=== PATIENT | male | born 1945 | race Caucasian/White ===

== ENCOUNTER 2017-08-06 04:58 | Emergency (ER) | payer OTHER ==
[~2017-08-06] VITALS: Ht 182.9 cm; Wt 72.7 kg
[~2017-08-06 04:58] MED LIST: AMLO2.5T PO; ARIC5TAB PO; CLON1TAB PO; DICY20TA10 PO; PRAV10 PO; [UNRECOGNIZED DRUG - CODE] PO
[2017-08-06 05:03] VITALS: BP 118/58; PULSE 84; TEMP 98.2; O2SAT 94
[2017-08-06] MEDS ORDERED: SODIUM CHLOR 0.9% 1000 ML INJ 1,000 ML IV SCH (05:15)
[2017-08-06] MEDS ORDERED: DONE10TA7 PO (05:19)
[2017-08-06] MEDS ORDERED: FLUO20CA12 PO (05:19)
[2017-08-06] MEDS ORDERED: AMLO5TAB2 PO (05:19)
[2017-08-06] MEDS ORDERED: LOPE2CAP PO (05:19)
[2017-08-06] MEDS ORDERED: [UNRECOGNIZED DRUG - CODE] (05:19)
[2017-08-06] MEDS ORDERED: DICL1CAP4 PO (05:19)
[2017-08-06] MEDS ORDERED: OLAN10TA PO (05:19)
[2017-08-06] MEDS ORDERED: CLON0.5T PO (05:19)
[2017-08-06] MEDS ORDERED: DICY10CA12 PO (05:19)
[2017-08-06] MEDS ORDERED: PRAV20TA2 PO (05:19)
[2017-08-06] MEDS ORDERED: CENTCHW4 CHEW (05:19)
--- NOTE | 2017-08-06 05:19 | PD ---
HPI Chief Complaint: General Weakness Time Seen by Provider: 05:03 Travel History International Travel<30 days: No Contact w/Intl Traveler<30days: No Traveled to known affect area: No History of Present Illness HPI 72-year-old male complains of lower extremity weakness, numbness and a fall. Patient states that he start having numbness and weakness lower extremity the past 4 days. Patient states that he tried to get up this morning and on the way to the bathroom and he fell. Patient denies loss of consciousness. Patient denies any headache or neck pain. Patient denies any chest pain or shortness of breath. Patient denies abdominal pain. Patient denies any nausea vomiting or diarrhea. Patient denies any fever chills. Patient denies any dysuria or frequency. Patient states that he did not injure himself during the fall. Patient states that he has diarrhea and foul smelling stool and passing gas excessively for the past 2 weeks. Patient has been seen by personal physician and put on Imodium and Lomotil without much success with diarrhea. Patient denies any blood or mucus in the stool. PFSH Past Medical History Cancer: Yes Cardiovascular Problems: Yes (HIGH BP) High Cholesterol: Yes Chemotherapy: Yes Diminished Hearing: No Diverticulitis: Yes Hypertension: Yes Neurologic: Yes (ALLA BODY DEMENTIA) Parkinson's Disease: Yes Immunizations Current: Yes Radiation Therapy: Yes Past Surgical History Surgical History: No Previous Surgery Social History Alcohol Use: Yes (1 BEER QWEEK) Tobacco Use: No Substance Use: No Allergies-Medications (Allergen,Severity, Reaction): Coded Allergies: No Known Allergies (Verified , 10/11/15) Reported Meds & Prescriptions Reported Meds & Active Scripts Active Reported Centrum (Multiple Vitamins W/ Minerals) 1 Chew 1 Tab CHEW DAILY Zorvolex (Diclofenac) 35 Mg Cap 75 Mg PO TID Loperamide (Loperamide HCl) 2 Mg Cap 2 Mg PO DIRECTED PRN One capsule after each loose stool. Not to exceed 8 capsules per day. l-Glutamine (Glutamine) 500 Mg Capsule Fluoxetine (Fluoxetine HCl) 20 Mg Capsule 20 Mg PO DAILY Olanzapine 10 Mg Tab 10 Mg PO HS Amlodipine (Amlodipine Besylate) 5 Mg Tab 5 Mg PO DAILY Pravastatin 20 Mg Tab 20 Mg PO DAILY Donepezil 10 Mg Tab 10 Mg PO HS Dicyclomine (Dicyclomine HCl) 10 Mg Cap 10 Mg PO DAILY Clonazepam 0.5 Mg Tab 0.5 Mg PO HS Anti-Diarrheal (Loperamide Hcl) 1 Mg/5 Ml Liq 2 Mg PO DAILY Dicyclomine 20 mg (Dicyclomine HCl) 20 Mg Tab 20 Mg PO DAILY Clonazepam 1 Mg Tab 0.5 Mg PO DAILY Pravastatin Sodium (Pravastatin Sod) 10 Mg Tab 10 Mg PO HS Aricept (Donepezil HCl) 5 Mg Tab 10 Mg PO DAILY Amlodipine Besylate 2.5 mg (Amlodipine Besylate) 2.5 Mg Tab 2.5 Mg PO DAILY Review of Systems General / Constitutional: No: Fever Eyes: No: Visual changes HENT: No: Headaches Cardiovascular: No: Chest Pain or Discomfort Respiratory: No: Shortness of Breath Gastrointestinal: No: Abdominal Pain Genitourinary: No: Dysuria Musculoskeletal: No: Pain Skin: No Rash Neurologic: No: Weakness Psychiatric: No: Depression Endocrine: No: Polydipsia Hematologic/Lymphatic: No: Easy Bruising Physical Exam Narrative GENERAL: Well-nourished, well-developed patient. SKIN: Focused skin assessment warm/dry. HEAD: Normocephalic. EYES: No scleral icterus. No injection or drainage. NECK: Supple, trachea midline. No JVD or lymphadenopathy. CARDIOVASCULAR: Regular rate and rhythm without murmurs, gallops, or rubs. RESPIRATORY: Breath sounds equal bilaterally. No accessory muscle use. GASTROINTESTINAL: Abdomen soft, non-tender, nondistended. MUSCULOSKELETAL: No cyanosis, or edema. BACK: Nontender without obvious deformity. No CVA tenderness. Neurologic exam: Patient's awake and alert oriented 3. Patient moves all extremities well. No obvious focal neurological deficit. Data Data Last Documented VS Vital Signs Date Time Temp Pulse Resp B/P (MAP) Pulse Ox O2 Delivery O2 Flow Rate FiO2 08/06/17 05:03 98.2 84 118/58 (78) 94 Orders Orders Electrocardiogram (08/06/17 05:10) Complete Blood Count With Diff (08/06/17 05:10) Comprehensive Metabolic Panel (08/06/17 05:10) Prothrombin Time / Inr (Pt) (08/06/17 05:10) Act Partial Throm Time (Ptt) (08/06/17 05:10) Urinalysis - C+S If Indicated (08/06/17 05:10) Thyroid Stimulating Hormone (08/06/17 05:10) Chest, Single Ap (08/06/17 05:10) Iv Access Insert/Monitor (08/06/17 05:10) Ecg Monitoring (08/06/17 05:10) Oximetry (08/06/17 05:10) Sodium Chlor 0.9% 1000 Ml Inj (Ns 1000 M (08/06/17 05:15) Ct Brain W/O Iv Contrast(Rout) (08/06/17 05:16) Labs Laboratory Tests Test 08/06/17 05:30 White Blood Count 10.3 TH/MM3 Red Blood Count 3.42 MIL/MM3 Hemoglobin 9.6 GM/DL Hematocrit 28.9 % Mean Corpuscular Volume 84.5 FL Mean Corpuscular Hemoglobin 28.0 PG Mean Corpuscular Hemoglobin Concent 33.2 % Red Cell Distribution Width 15.2 % Platelet Count 594 TH/MM3 Mean Platelet Volume 8.3 FL Neutrophils (%) (Auto) 74.0 % Lymphocytes (%) (Auto) 6.4 % Monocytes (%) (Auto) 18.0 % Eosinophils (%) (Auto) 1.3 % Basophils (%) (Auto) 0.3 % Neutrophils # (Auto) 7.6 TH/MM3 Lymphocytes # (Auto) 0.7 TH/MM3 Monocytes # (Auto) 1.9 TH/MM3 Eosinophils # (Auto) 0.1 TH/MM3 Basophils # (Auto) 0.0 TH/MM3 CBC Comment DIFF FINAL Differential Comment Prothrombin Time 14.0 SEC Prothromb Time International Ratio 1.3 RATIO Activated Partial Thromboplast Time 33.4 SEC Blood Urea Nitrogen 13 MG/DL Creatinine 0.98 MG/DL Random Glucose 125 MG/DL Total Protein 6.6 GM/DL Albumin 1.8 GM/DL Calcium Level 8.0 MG/DL Alkaline Phosphatase 116 U/L Aspartate Amino Transf (AST/SGOT) 26 U/L Alanine Aminotransferase (ALT/SGPT) 27 U/L Total Bilirubin 0.6 MG/DL Sodium Level 137 MEQ/L Potassium Level 3.9 MEQ/L Chloride Level 104 MEQ/L Carbon Dioxide Level 25.0 MEQ/L Anion Gap 8 MEQ/L Estimat Glomerular Filtration Rate 75 ML/MIN Thyroid Stimulating Hormone 3rd Gen 2.570 uIU/ML MDM Medical Decision Making Medical Screen Exam Complete: Yes Emergency Medical Condition: Yes Interpretation(s) [address] scan of the brain negative acute pathology. Chest x-ray showed questionable right hilar mass with atelectasis. Elevated right hemidiaphragm. CBC with WBC 10.3. Hemoglobin 9.6 hematocrit 20.9. Platelet 594. 74 neutrophil. Differential Diagnosis Differential diagnosis including neuralgia, spinal stenosis, TIA, CVA. Narrative Course 72-year-old male with numbness and weakness lower extremity. Patient had a fall this morning. Patient has persistent diarrhea for the past 2 weeks. Foul- smelling stool. Diagnosis Primary Impression: Gastroenteritis Additional Impression: Weakness Patient Instructions: General Instructions Additional Instructions: Encourage by mouth fluids. Vancomycin as directed. Follow-up with GI specialist personal physician. Return if worse. Med/Other Pt SpecificInfo: Prescription(s) given Scripts Vancomycin (Vancomycin) 125 Mg Cap 125 MG PO QID for Infection, #40 CAP 0 Refills Prov: Booker Guo MD 08/06/17 Disposition: 01 DISCHARGE HOME Condition: Stable Booker Guo MD Aug 06, 2017 05:19
[2017-08-06 05:50] LABS: AUTOMATED NEUTROPHIL # 7.6 TH/MM3 (1.8-7.7); BASOPHIL % 0.3 % (0.0-2.0); EOSINOPHIL # 0.1 TH/MM3 (0-0.4); EOSINOPHIL % 1.3 % (0.0-4.0); HEMATOCRIT 28.9 % (39.0-51.0); HEMO FLAGS DIFF FINAL; LYMPH % 6.4 % (9.0-44.0); LYMPHOCYTE # 0.7 TH/MM3 (1.0-4.8); MEAN CELL VOLUME 84.5 FL (80.0-100.0); MEAN CORPUSCULAR HGB CONC 33.2 % (32.0-36.0); PLATELET COUNT 594 TH/MM3 (150-450); RED BLOOD COUNT 3.42 MIL/MM3 (4.50-5.90); RED CELL DISTRIBUTION WIDTH 15.2 % (11.6-17.2); WHITE BLOOD COUNT 10.3 TH/MM3 (4.0-11.0)
--- NOTE | 2017-08-06 05:53 | RADRPT ---
EXAM DATE/TIME: 08/06/2017 05:16 [facility] COMPARISON: CT BRAIN W/O CONTRAST, January 25, 2014, 15:36. INDICATIONS : General weakness. RADIATION DOSE: 56.35 CTDIvol (mGy) MEDICAL HISTORY : Dementia. Parkinsons. Hypertension. SURGICAL HISTORY : None. ENCOUNTER: Initial ACUITY: 1 day PAIN SCALE: 0/10 LOCATION: cranial TECHNIQUE: Multiple contiguous axial images were obtained of the head. Using automated exposure control and adj ustment of the mA and/or kV according to patient size, radiation dose was kept as low as reasonably a chievable to obtain optimal diagnostic quality images. DICOM format image data is available electro nically for review and comparison. FINDINGS: CEREBRUM: The ventricles are normal for age. No evidence of midline shift, mass lesion, hemorrhage or acute in farction. No extra-axial fluid collections are seen. POSTERIOR FOSSA: The cerebellum and brainstem are intact. The 4th ventricle is midline. The cerebellopontine angle i s unremarkable. EXTRACRANIAL: The visualized portion of the orbits is intact. SKULL: The calvaria is intact. No evidence of skull fracture. CONCLUSION: Normal examination. Russell Browning MD on August 06, 2017 at 5:49 Board Certified Radiologist. This report was verified electronically.
--- NOTE | 2017-08-06 05:56 | RADRPT ---
EXAM DATE/TIME: 08/06/2017 05:43 [facility] COMPARISON: CHEST SINGLE AP, February 08, 2015, 14:27. INDICATIONS : Shortness of breath. MEDICAL HISTORY : None. SURGICAL HISTORY : None. ENCOUNTER: Initial ACUITY: 3 days PAIN SCORE: 0/10 LOCATION: chest FINDINGS: A single view of the chest demonstrates right perihilar somewhat masslike consolidation with atelecta sis. Questionable right hilar mass. Elevated right hemidiaphragm. Further evaluation with chest CT re commended. Minimal left basilar atelectasis. CONCLUSION: 1. Questionable right hilar mass with atelectasis. Further evaluation with chest CT with contrast rec ommended. Elevated right hemidiaphragm. Russell Browning MD on August 06, 2017 at 5:51 Board Certified Radiologist. This report was verified electronically.
[2017-08-06 06:03] LABS: APTT (PATIENT) 33.4 SEC (24.3-30.1); INTERNATIONAL NORMALIZED RATIO 1.3 RATIO
[2017-08-06 06:46] LABS: BLOOD UREA NITROGEN 13 MG/DL (7-18); GLOMERULAR FILTRATION RATE 75 ML/MIN (>89)
[2017-08-06 06:47] LABS: ALKALINE PHOSPHATASE 116 U/L (45-117); ALT (GPT) 27 U/L (12-78); ANION GAP 8 MEQ/L (5-15); AST (GOT) 26 U/L (15-37); CHLORIDE 104 MEQ/L (98-107); POTASSIUM 3.9 MEQ/L (3.5-5.1); SODIUM (NA) 137 MEQ/L (136-145); TOTAL BILIRUBIN ADULT 0.6 MG/DL (0.2-1.0)
[2017-08-06] MEDS ORDERED: VANC125C3 PO (07:02)
[2017-08-06 07:04] VITALS: BP 108/55; PULSE 74; RESP 20; O2SAT 94
--- NOTE | 2017-08-06 08:57 | EKG ---
Date Performed: 08/06/2017 Time Performed: 05:06:56 PTAGE: 72 years EKG: Sinus rhythm BORDERLINE LEFT AXIS DEVIATION MINIMAL VOLTAGE CRITERIA FOR LVH, CONSIDER NORMAL VARIANT NONSPECIFIC T-WAVE ABNORMALITY ABNORMAL ECG PREVIOUS TRACING : 10/25/2008 14.09 Compared to previous tracing, nonspecific T wave abnormalit ies are now present. DOCTOR: Brooks Avendaño Interpretating Date/Time 08/06/2017 08:55:57
== END 2017-08-06 08:20 | disposition home or self-care (01) ==
LOC: NEPC 04:58
DX: K52.9 Noninfective gastroenteritis and colitis, unspecified (principal); R53.1 Weakness; E78.5 Hyperlipidemia, unspecified; I10 Essential (primary) hypertension; G20 Parkinson's disease; Z79.899 Other long term (current) drug therapy
CPT/HCPCS: 70450; 71010; 80053; 84443; 85025; 85610; 85730; 93005; 99285; J7030